=== PATIENT | male | born 1985 | race Caucasian/White ===

== ENCOUNTER → 2024-04-05 14:25 | Outpatient (CLI) | payer OTHER, SELFPAY ==
[2024-04-08 10:36] LABS: Bordetella parapertussis PCR Negative (Negative); Bordetella pertussis PCR Negative (Negative)
== END ==
PROVIDERS: PCP Physician Assistant; Visit Provider Physician Assistant
DX: R05.1 Acute cough (principal); R06.2 Wheezing
CPT/HCPCS: 87798

== ENCOUNTER → 2025-04-01 10:03 | Outpatient (CLI) | payer OTHER, SELFPAY ==
[2025-04-01 18:11] LABS: Add Manual Diff / Slide Review NO; Hematocrit 45.8 % (41-53); Hemoglobin 15.6 g/dL (13.5-17.5); Lymphocytes Absolute Auto 1900 /uL (1100-4500); Mean Corpuscular HGB Conc 34.2 % (30-36); Mean Corpuscular Hemoglobin 29.7 PG (26-34); Mean Corpuscular Volume 86.8 fL (80-100); Platelet Count 271 X10^3/uL (150-400)
[2025-04-01 18:23] LABS: Alanine Aminotransferase 36 IU/L (<50); Albumin 4.8 g/dL (3.5-5.0); Albumin Globulin Ratio 1.6 (1.0-2.8); Alkaline Phosphatase 67 U/L (38-126); Blood Urea Nitrogen 10 mg/dL (9-20); Calcium 9.4 mg/dL (8.4-10.2); Carbon Dioxide 21 mmol/L (22-32); Chloride 106 mmol/L (98-107); Cholesterol 207 mg/dL (140-199); Estimated Glomerular Filt Rate > 60 mL/min (>60); Globulin 3.0 g/dL (1.7-4.1); Glucose 95 mg/dL (70-99); HDL Cholesterol 54 mg/dL (40-60); HEMOLYSIS 35 (0-50); Potassium 4.6 mmol/L (3.4-5.1); Sodium 138 mmol/L (137-145); Total Protein 7.8 g/dL (6.3-8.2); Triglycerides 89 mg/dL (35-150)
[2025-04-01 18:57] LABS: TSH w/ Reflex to FT4 1.19 uIU/mL (0.47-4.68)
[2025-04-02 15:07] LABS: Hep C Virus Ab w/Reflex Quant NEGATIVE s/c (NEGATIVE)
== END ==
PROVIDERS: PCP Physician Assistant; Visit Provider Physician Assistant
DX: Z12.5 Encounter for screening for malignant neoplasm of prostate (principal); Z11.59 Encounter for screening for other viral diseases; R03.0 Elevated blood-pressure reading, without diagnosis of hypertension; Z13.1 Encounter for screening for diabetes mellitus; Z13.6 Encounter for screening for cardiovascular disorders; R42 Dizziness and giddiness; R00.0 Tachycardia, unspecified
CPT/HCPCS: 80053; 80061; 84443; 85025; 86803; G0103